=== PATIENT | female | born 1995 | race Caucasian/White ===

== ENCOUNTER 2017-03-26 07:28 | Emergency (ER) | payer BC ==
[~2017-03-26] VITALS: Ht 162.6 cm; Wt 68.9 kg
[2017-03-26 08:14] VITALS: BP 137/85
== END 2017-03-26 08:14 | disposition home or self-care (01) ==
LOC: ED 07:28
DX: J06.9 Acute upper respiratory infection, unspecified (principal); J04.0 Acute laryngitis